=== PATIENT | male | born 1940 | race Caucasian/White ===

== ENCOUNTER 2021-09-05 11:34 | Emergency (ER) | payer OTHER ==
[2021-09-05 12:36] VITALS: BP 158/67; PULSE 66; TEMP 97.6; BMI 25.2
[2021-09-05] MEDS ORDERED: LIDOCAINE 5% TOPICAL PATCH TP ONE (13:04)
[2021-09-05] MEDS ORDERED: IBUPROFEN 400 MG TABLET (FP) PO ONE ×2 (13:04→13:16)
[2021-09-05] MEDS ORDERED: ACETAMINOPHEN 325 MG TABLET (FP) PO ONE (13:04)
[2021-09-05] MEDS ORDERED: ACETAMINOPHEN 325 MG TABLET (FP) ONE (13:16)
[2021-09-05] MEDS ORDERED: LIDOCAINE 5% TOPICAL PATCH ONE (13:17)
[2021-09-05] MEDS ORDERED: LIDOCAINE PATCH REMOVAL MC ONE (22:00)
== END 2021-09-05 15:49 | disposition home or self-care (01) ==
LOC: JER 11:34
DX: M54.50 Low back pain, unspecified (principal)
CPT/HCPCS: 99283-25

== ENCOUNTER 2024-01-30 04:09 | Emergency (ER) | payer OTHER ==
[2024-01-30 04:19] VITALS: BP 170/68; PULSE 61; RESP 19; TEMP 97.5; BMI 24.2
[2024-01-30] MEDS ORDERED: PREGABALIN 25 MG CAPSULE ONE (06:07)
[2024-01-30] MEDS: PREGABALIN 25 MG CAPSULE PO ONE (06:11)
== END 2024-01-30 06:20 | disposition home or self-care (01) ==
LOC: JER 04:09
DX: M54.50 Low back pain, unspecified (principal); B02.9 Zoster without complications
CPT/HCPCS: 99283-25

== ENCOUNTER 2024-02-05 23:56 | Inpatient (IN) | payer OTHER ==
[2024-02-06 00:02] VITALS: RESP 18; BMI 24.0
[2024-02-06] MEDS ORDERED: KETOROLAC TROMETHAMINE 15 MG/ML VIAL ONE (00:35)
[2024-02-06] MEDS ORDERED: morphine SULFATE 4 MG/ML VIAL ONE (00:35)
[2024-02-06] MEDS: KETOROLAC TROMETHAMINE 15 MG/ML VIAL IVPUSH ONE (00:47)
[2024-02-06] MEDS: morphine CARPU-JECT 4 MG/1 ML DISP.SYRIN IVPUSH ONE (00:48)
[2024-02-06 00:56] LABS: BASO % 0.7 % (0-2.0); EOS % 4.8 % (0-4.5); HEMATOCRIT 42.8 % (35.4-49); LYMPH % 29.8 % (8-40); MCH 26.5 pg (25.7-33.7); MCHC 32.6 g/dl (32.0-35.9); MEAN CELL VOLUME 81.4 fl (80-96); MEAN PLT VOLUME 8.6 fl (7.5-11.1); MONO % 5.1 % (3.8-10.2); NEUT % 59.6 % (42.8-82.8); PLATELET COUNT 157 10^3/uL (134-434); RBC 5.26 M/mm3 (4.00-5.60); RDW 15.6 % (11.9-15.9); WHITE BLOOD COUNT 5.6 K/mm3 (4.0-10.0)
[2024-02-06 01:10] LABS: POTASSIUM 4.3 mmol/L (3.5-5.1)
[2024-02-06 01:12] LABS: ALBUMIN 3.9 g/dl (3.4-5.0); CALCIUM 8.9 mg/dL (8.5-10.1)
[2024-02-06 01:13] LABS: BLOOD UREA NITROGEN 16.6 mg/dL (7-18); MAGNESIUM 2.1 mg/dL (1.8-2.4)
[2024-02-06 01:15] LABS: PHOSPHOROUS 3.4 mg/dL (2.5-4.9)
[2024-02-06 01:16] LABS: CREATININE 0.9 mg/dL (0.55-1.3)
[2024-02-06 01:17] LABS: BILIRUBIN,TOTAL 0.4 mg/dL (0.2-1); TOT PROT 7.4 g/dl (6.4-8.2)
[2024-02-06 09:08] LABS: HEMATOCRIT 41.7 % (35.4-49); HEMOGLOBIN 13.7 GM/dL (11.7-16.9); MCH 26.4 pg (25.7-33.7); MCHC 32.8 g/dl (32.0-35.9); MEAN CELL VOLUME 80.6 fl (80-96); MEAN PLT VOLUME 8.5 fl (7.5-11.1); PLATELET COUNT 143 10^3/uL (134-434); RBC 5.18 M/mm3 (4.00-5.60); RDW 15.5 % (11.9-15.9)
[2024-02-06 09:28] LABS: POTASSIUM 4.4 mmol/L (3.5-5.1)
[2024-02-06 09:29] LABS: CALCIUM 9.1 mg/dL (8.5-10.1)
[2024-02-06 09:30] LABS: MAGNESIUM 2.3 mg/dL (1.8-2.4)
[2024-02-06 09:33] LABS: CREATININE 0.8 mg/dL (0.55-1.3); PHOSPHOROUS 3.4 mg/dL (2.5-4.9)
[2024-02-06] MEDS: CYANOCOBALAMIN 1,000 MCG TABLET (FP) PO SCH (09:36)
[2024-02-06] MEDS: POLYETHYLENE GLYCOL (HEALTHYLAX) 3350 17 GM PACKET PO SCH (09:37)
[2024-02-06] MEDS: PANTOPRAZOLE 20 MG TABLET PO SCH (09:37)
[2024-02-06] MEDS: NIFEdipine E.R. 30 MG TABLET PO SCH (09:37)
[2024-02-06] MEDS: ACYCLOVIR INJECTION 350 MG in DEXTROSE 5%-WATER - 100 ML IVPB SCH (14:20)
[2024-02-06] MEDS: PREGABALIN 25 MG CAPSULE PO PRN (17:10)
[2024-02-06] MEDS: RAMIPRIL 5 MG CAPSULE PO SCH (22:21)
[2024-02-06] MEDS: SENNOSIDES 8.8 MG/5 ML SYRUP PO SCH (22:23)
[2024-02-07] MEDS: oxyCODONE HCL 5 MG TABLET PO PRN (01:58)
[2024-02-07 07:52] LABS: POTASSIUM 4.4 mmol/L (3.5-5.1)
[2024-02-07 07:54] LABS: BLOOD UREA NITROGEN 23.5 mg/dL (7-18); CALCIUM 8.5 mg/dL (8.5-10.1)
[2024-02-07 07:58] LABS: CREATININE 1.1 mg/dL (0.55-1.3)
[2024-02-07] MEDS: FAMCICLOVIR 500 MG PO SCH (10:30)
[2024-02-07 14:14] VITALS: BP 153/67; PULSE 58; TEMP 97.7
[2024-02-07] MEDS ORDERED: valACYclovir HCL 500 MG TABLET (FP) PO SCH ×2 (14:30→22:00)
[2024-02-07] MEDS: valACYclovir HCL 500 MG TABLET (FP) PO SCH (15:37)
== END 2024-02-07 15:42 | disposition home or self-care (01) | DRG 74 ==
LOC: JER 23:56 → JERBED 02-06 01:34 → J8W 02-06 03:47 → OBSVTOIN 02-07 12:02
PROVIDERS: ADMIT Internal Medicine; ATTEND Nurse Practitioner Acute Care
DX: B02.29 Other postherpetic nervous system involvement (principal); K21.9 Gastro-esophageal reflux disease without esophagitis; I10 Essential (primary) hypertension; M54.9 Dorsalgia, unspecified
CPT/HCPCS: 36415; 80048; 80053; 83735; 84100; 84484; 85025; 85027; 93005; 93010; 99285-25; G0378